=== PATIENT | male | born 1965 | race Two or more races ===

== ENCOUNTER 2025-03-11 07:35 | Day surgery (SDC) | payer MEDICAID, SELFPAY ==
[2025-03-09 11:47] VITALS: BMI 24.9
--- NOTE | 2025-03-09 12:00 | EKG_ITS ---
[facility] Test Date: 2025-03-09 Pat Name: FRANCISCO WILD Department: Room: - Gender: Male [employer]: RTGL : 1965 Requested By: Anthony Peraza Order Number: [id number] Reading MD: Anthony Peraza Measurements Intervals Blossom Rate: 59 P: 31 PA: 176 QRS: 29 QRSD: 101 T: 30 QT: 415 QTc: 413 Interpretive Statements SINUS BRADYCARDIA POSSIBLE LEFT ATRIAL ENLARGEMENT [-0.1mV P WAVE IN V1/V2] INCOMPLETE RIGHT BUNDLE BRANCH BLOCK [90+ ms QRS DURATION, TERMINAL R IN V1/V2, 40+ ms S IN I/aVL/V4/V5/V6] Compared to ECG 02/08/2021 09:25:38 Incomplete right bundle-branch block now present Left-axis deviation no longer present /store/S0/[id number]/ecg/[id number].pdf
[2025-03-09 12:40] LABS: Basophils # (Auto) 0.0 Thou/mm3 (0.0-0.2); Basophils % (Auto) 1 % (0-2.5); Eosinophils # (Auto) 0.1 Thou/mm3 (0.0-0.5); Eosinophils % (Auto) 1 % (0-10); Hematocrit 48.3 % (41.0-53.0); Hemoglobin 17.2 g/dL (13.5-16.0); Immature Granulocytes Auto 0.05 Thou/mm3 (0.00-0.00); Lymphocytes # (Auto) 2.7 Thou/mm3 (1.0-4.8); Lymphocytes % (Auto) 33 % (10-50); Mean Corpuscular HGB Conc 35.6 g/dl (31.0-37.0); Mean Corpuscular Hemoglobin 31.4 pg (25.0-35.0); Mean Corpuscular Volume 88 fL (80-100); Monocytes # (Auto) 0.5 Thou/mm3 (0.0-0.8); Monocytes % (Auto) 6 % (0-12); Neutrophils # (Auto) 4.9 Thou/mm3 (1.8-7.7); Neutrophils % (Auto) 59 % (37-80); Nucleated Red Blood Cell # 0.00 Thou/mm3 (0.00-0.00); Nucleated Red Blood Cell % 0 /100 WBC (0); Platelet Count 270 Thou/mm3 (140-440); RDW Standard Deviation 41.2 fL (35.1-43.9); Red Blood Count 5.48 Miln/mm3 (4.50-5.90); White Blood Count 8.3 Thou/mm3 (3.8-10.6)
[2025-03-09 13:04] LABS: INR 1.0 (0.9-1.3); Prothrombin Time 10.7 Seconds (9.0-12.2)
[2025-03-09 13:06] LABS: Alanine Aminotransferase 33 U/L (10-49); Albumin, Serum 4.9 gm/dL (3.5-5.0); Albumin/Globulin Ratio 2.1 (1.2-2.2); Alkaline Phosphatase 100 U/L (46-116); Anion Gap 11 (7-16); Aspartate Amino Transferase 22 U/L (0-34); BUN/Creatinine Ratio 10 Ratio (12-20); Bilirubin,Total 1.1 mg/dL (0.3-1.2); Blood Urea Nitrogen 7 mg/dL (9-23); Calcium 9.4 mg/dL (8.3-10.6); Calcium (Corrected) 9.4 mg/dL (8.5-10.1); Carbon Dioxide 27.8 mMol/L (20.0-31.0); Chloride 106 mMol/L (98-107); Creatinine (Component) 0.7 mg/dL (0.6-1.3); Estimated Creatinine Clearance 96.3 mL/min (>60); Globulin 2.3 gm/dL (2.3-3.5); Glucose 97 mg/dL (74-106); Osmolality,Calculated 286 (275-295); Potassium 3.9 mMol/L (3.4-5.1); Sodium 145 mMol/L (136-145); Total Protein 7.2 gm/dL (5.7-8.2); eGFR > 60 See Note
--- NOTE | 2025-03-10 16:10 | SUR.PREOP ---
Pt notified to come in tomorrow at 0830,
[2025-03-11] VITALS (9 sets, daily range): BP systolic 128–163; BP diastolic 82–97; PULSE 53–60; RESP 14–18; TEMP 36.1–37; O2SAT 96–100; BMI 24.7
--- NOTE | 2025-03-11 10:23 | SUR.PHASEI ---
1018 patient s/p lap cholecystectomy with oral airway in place, dermabond to abdomen x4, no bleeding noted, report received from Brodie SHANKS and Grover MARIE.
--- NOTE | 2025-03-11 10:24 | ESOP_ITS ---
Date of Procedure 03/11/25 Pre Op Diagnosis Symptomatic cholelithiasis Post Op Diagnosis Cholelithiasis with cholecystitis Procedure Laparoscopic cholecystectomy Findings Moderately distended gallbladder with large gallstone and chronic cholecystitis. Moderate periumbilical adhesions from previous operations Procedure Description Patient was brought into the operating room in supine position. After administration of general endotracheal anesthesia abdomen was prepped and draped in standard surgical manner. Patient has history of umbilical hernia repair with mesh. I elected to obtain pneumoperitoneum via right upper quadrant. A 5 mm incision was made in right upper quadrant and A Veress needle was inserted. Pneumoperitoneum was obtained up to 15 mmHg. The Veress needle was then removed, a 5 mm trocar was inserted. Laparoscopic camera was placed. The abdomen was inspected, patient was noted to have moderate amount of adhesions from previous operation in periumbilical region. Under direct visualization a laparoscopic camera a 5 mm trocar was placed to the right side of the umbilicus away from adhesions. Laparoscopic camera was placed through the periumbilical port and under direct visualization a 10 mm trocar was placed in subxiphoid. An additional 5 mm trocar placed in right upper quadrant lateral to the previous trocar. The gallbladder was identified and was noted to be moderately distended with large gallstone and chronic cholecystitis. It was retracted cephalad and laterally. Dissection started near the infundibulum of gallbladder where cystic duct and gallbladder junction clearly identified. The cystic duct was circumferentially dissected off the peritoneum and surrounding inflammatory tissue. The critical view of safety was clearly demonstrated. Cystic duct was then divided between 2 endoclips proximally and one distally. The cystic artery was similarly dissected and divided. The gallbladder was then from the liver bed using electrocautery. The gallbladder was then placed inside an Endo Catch and removed from the abdomen utilizing subxiphoid trocar site. The area was copiously and thoroughly washed and irrigated, all the fluid was suctioned and the suction fluid returned clear. Hemostasis achieved using electrocautery, also topical hemostatic agent using snow Surgicel placed at gallbladder fossa to further assure hemostasis. Endoclips noted be in place and intact without any bleeding or any leakage. Hemostasis was adequate and satisfactory. The subxiphoid trocar sites fascial defect was closed with 0 Vicryl using Endo Closure device. Instruments and trocars removed, pneumoperitoneum was evacuated and the incisions closed with 4-0 Monocryl in subcuticular fashion. Instrument needle and sponge counts were all reported to be correct X2. Patient tolerated the procedure well, was extubated, breathing spontaneously and without difficulty and was transferred to postanesthesia care in stable condition. Anesthesia GETA and local Pathology / specimen Other (Gallbladder and contents) Estimated Blood Loss 10 Condition Stable Disposition PACU Surgeon Anthony Peraza MD Surgical Staff Operation Date: 03/11/25 10:30 Case Staff CUT OUT MACHINE OPERATOR: Christopher Ness RNchinchilla farmer: Elda Hodges
--- NOTE | 2025-03-11 10:37 | SUR.PHASEI ---
1034 oral airway removed
[2025-03-11] MEDS: ONDANSETRON INJ 2 MG/ML INJ 2 ML 4 MG IVP (10:52)
--- NOTE | 2025-03-11 11:49 | SUR.PHASEII ---
1122 patient is awake, alert, breathing unlabored, no bleeding noted to benitadmen, patient meets diacharge criteria, discharge instrucitons given via linen room custodian, patient discharged home in wheelchair with all belongings. pt stated he burped and pass gas when getting dressed.
== END 2025-03-11 11:22 | disposition home or self-care (01) ==
PROVIDERS: PCP Family Medicine; Referring Provider Surgery; Visit Provider Surgery
PROC: 0FT44ZZ Resection of Gallbladder, Percutaneous Endoscopic Approach (ICD-10-PCS; CPT 47562; principal; 2025-03-11 10:15)
DX: K80.10 Calculus of gallbladder with chronic cholecystitis without obstruction (principal); Z01.810 Encounter for preprocedural cardiovascular examination
CPT/HCPCS: 47562; 36415; 80053; 85025; 85610; 93005; A4217; A4649; J0694; J1100; J1885; J2250; J2405; J2704; J3010; J3490